=== PATIENT | female | born 1965 | race Caucasian/White ===

== ENCOUNTER → 2022-04-26 | Outpatient (CLI) | payer OTHER ==
[~2022-04-26] MED LIST: ASA; AZIT250T12 PO; FISH OIL OMEGA1 EACH PO; LISI10TA2 PO; LORA1TAB PO; LOVA10TA PO; METF-397 PO; METH4TAB PO; RABE20TA PO
--- NOTE | 2022-04-28 09:44 | Diagnostic Imaging Report ---
3D bilateral screening mammogram with Computed Aided Detection (CAD) system. COMPARISON: This study was compared to the prior exam of 11/02/2015. There are no current complaints. FINDINGS: The fibroglandular tissue in both breasts is heterogeneously dense. This does limit the sensitivity of this exam. When compared to the previous study there does not appear to have been any significant change. There is no primary or secondary sign of malignancy noted. IMPRESSION: 1. There is no evidence for malignancy. 2. The patient should have her annual bilateral screening mammogram on schedule in April of 2023. ACR category 1 ACR BI-RADS Category 1: Negative. Result letter will be mailed to the patient. Note: At least 10% of breast cancer is not imaged by mammography. Dictated on workstation # [id number]
== END ==
LOC: RAD 14:41
PROVIDERS: ATTEND Physician Assistant
DX: Z12.31 Encounter for screening mammogram for malignant neoplasm of breast (principal)
CPT/HCPCS: 77063; 77067

== ENCOUNTER → 2022-10-23 | Outpatient (CLI) | payer OTHER ==
[~2022-10-23] VITALS: Ht 154.9 cm; Wt 48.6 kg
[~2022-10-23] MED LIST changes: +LIDOCAINE 1% INJ 10 ML VIAL INJ ONE; +LIDOCAINE 1% INJ 10 ML VIAL ONE
--- NOTE | 2022-10-23 16:16 | Diagnostic Imaging Report ---
INDICATION: Thyroid nodule. Patient presents for ultrasound-guided fine-needle aspiration. Patient was brought to the procedure room and placed on the table in the supine position. Ultrasound imaging of the thyroid was performed to evaluate appropriate entry site. The neck was then prepped and draped in usual sterile fashion. Small amount of 1% lidocaine was utilized for local anesthesia. A total of 5 passes were made into the dominant hypoechoic nodule in the isthmus of the thyroid utilizing 25-gauge needles and fine-needle aspiration technique. Hemostasis was obtained. Patient tolerated the procedure well and left the department in stable condition. IMPRESSION: Successful ultrasound-guided fine-needle aspiration of the dominant solid nodule in isthmus of the thyroid. Pathology results are currently pending. Dictated by: Dictated on workstation # [id number]
== END ==
LOC: RAD 14:03
PROVIDERS: ATTEND Otolaryngology
DX: E04.1 Nontoxic single thyroid nodule (principal)

== ENCOUNTER → 2022-11-06 | Outpatient (CLI) | payer OTHER ==
[~2022-11-06] MED LIST changes: -LIDOCAINE 1% INJ 10 ML VIAL INJ ONE; -LIDOCAINE 1% INJ 10 ML VIAL ONE; +RT-ALBUTEROL SULF 2.5 MG/3 ML PRE-MIX VIAL INH ONE
== END ==
LOC: RT 12:47
PROVIDERS: ATTEND Nurse Practitioner Family
DX: J44.9 Chronic obstructive pulmonary disease, unspecified (principal)
CPT/HCPCS: 94060; 94726; 94729

== ENCOUNTER 2022-11-27 07:47 | Outpatient (CLI) | payer OTHER ==
[~2022-11-27 07:47] MED LIST changes: -RT-ALBUTEROL SULF 2.5 MG/3 ML PRE-MIX VIAL INH ONE
== END 2022-11-27 08:20 ==
LOC: SLEEP 07:47
PROVIDERS: ATTEND Nurse Practitioner Family
DX: J44.9 Chronic obstructive pulmonary disease, unspecified (principal); G47.9 Sleep disorder, unspecified; G47.10 Hypersomnia, unspecified
CPT/HCPCS: G0399

== ENCOUNTER 2023-02-17 19:14 | Outpatient (CLI) | payer SELFPAY | END 2023-02-18 05:21 | LOC: SLEEP 19:14 | PROVIDERS: ATTEND Nurse Practitioner Family | DX: G47.33 Obstructive sleep apnea (adult) (pediatric) (principal); G47.10 Hypersomnia, unspecified; J44.9 Chronic obstructive pulmonary disease, unspecified; R06.83 Snoring; G97.1 Other reaction to spinal and lumbar puncture; Z87.891 Personal history of nicotine dependence | CPT/HCPCS: 95811 ==